=== PATIENT | female | born 1985 | race Caucasian/White ===

== ENCOUNTER 2019-12-29 19:14 | Emergency (ER) | payer OTHER ==
[~2019-12-29] VITALS: Ht 170.2 cm; Wt 82.6 kg
[2019-12-29 19:20] VITALS: BP 111/62
--- NOTE | 2019-12-29 19:23 | NUR ---
TO LOBBY A/W BED AMBULATORY
--- NOTE | 2019-12-29 20:58 | NUR ---
PT AMBULATED TO ER BED 12
--- NOTE | 2019-12-29 20:58 | NUR ---
Jodie nur in [facility] - 12/29/19 at 2104 by CARMEN PT AMBULATED TO ER [facility]
--- NOTE | 2019-12-29 21:00 | NUR ---
PT 34 Y/O FEMALE BIB SELF FOR BILATERAL EAR PAIN, THRAOT PAIN AND ABD PAIN RADIATING TO BACK X 3 DAYS. PT STATES ALL REAES ARE 8/10 PAIN AT THIS TIME. PT DENIES N/V/D. ABD IS SOFT, ROUND AND NON-TENDER. PT DENIES DECRESED APPITTITE. PT STATES LAST BM WAS 12/29/19 AND "NORMAL." PT SHE HAS ATTEMPTED TO TAKE TYLENOL AT HOME FOR THROAT AND EAT PAIN WITH INEFFECTIVE RESULTS. PT AT BEDSIDE. PT AAO X4. VSS. MEDHX: NONE ALLERGIES: NKA
[2019-12-29 21:53] LABS: APPEARANCE,URINE CLEAR (CLEAR); BILIRUBIN,URINE NEGATIVE (NEGATIVE); BLOOD, URINE TRACE-L (NEGATIVE); COLOR,URINE YELLOW (YELLOW); LEUKOCYTE ESTERASE ,URINE NEGATIVE (NEGATIVE); NITRITE, URINE NEGATIVE (NEGATIVE); UGLUCOSE NEGATIVE (NEGATIVE)
--- NOTE | 2019-12-29 23:02 | NUR ---
PT RESTING IN BED EYES OPEN. RESPIRATIONS ARE EVEN AND ULABORED. SKIN IS WARM AND DRY TO TOUCH. PT DENIES PAIN AT THIS TIME. VSS. BED LOCKED AND IN LOWEST POSITION.
[2019-12-30 00:10] LABS: RBC,URINE 0-5 /HPF (0-5); WBC,URINE NONE SEEN /HPF (0-5)
[2019-12-30 00:30] VITALS: BP 115/68
--- NOTE | 2019-12-30 00:30 | NUR ---
Patient discharged with v/s stable. Written and verbal after care instructions given and explained. Patient verbalized understanding. Ambulatory with steady gait. All questions addressed prior to discharge. Advised to follow up with PMD.
== END 2019-12-30 00:30 | disposition home or self-care (01) ==
LOC: MED 19:14
DX: R05 Cough (principal); J02.9 Acute pharyngitis, unspecified; R50.9 Fever, unspecified; H92.03 Otalgia, bilateral; R10.30 Lower abdominal pain, unspecified
CPT/HCPCS: 81001; 81025; 99283